=== PATIENT | male | born 1955 | race Caucasian/White ===

== ENCOUNTER → 2019-08-20 | Outpatient (CLI) | payer OTHER, MEDICARE ==
[~2019-08-20] MED LIST: ASPI-496 PO; HYDR-36 PO; MULT-658 PO; SIMV80TA18 PO; vitamin c
[2019-08-20 16:20] LABS: BASOPHILS # (AUTO) 0.02 x10^3/uL (0-0.1); BASOPHILS % (AUTO) 0 % (0-1); EOSINOPHILS # (AUTO) 0.24 x10^3/uL (0-0.4); EOSINOPHILS % (AUTO) 3 % (1-7); LYMPHOCYTES # (AUTO) 1.28 x10^3/uL (1-3.4); LYMPHOCYTES % (AUTO) 15 % (22-44); MD NO; MEAN CORPUSCULAR HEMOGLOBIN 31.3 pg (27.5-34.5); MEAN CORPUSCULAR HGB CONC 33.3 g/dL (33.2-36.2); MEAN CORPUSCULAR VOLUME 94.1 fL (81-97); MEAN PLATELET VOLUME 8.1 fL (7.4-10.4); MONOCYTES # (AUTO) 0.78 x10^3/uL (0.2-0.8); MONOCYTES % (AUTO) 9 % (2-9); NEUTROPHILS # (AUTO) 6.41 x10^3/uL (1.8-6.8); NEUTROPHILS % (AUTO) 73 % (42-75); PLATELET COUNT 210 x10^3/uL (130-400); RED BLOOD COUNT 4.75 x10^6/uL (4.38-5.82); RED CELL DISTRIBUTION WIDTH 12.9 % (9.4-14.8)
[2019-08-20 16:27] LABS: MICROSCOPIC NOT IND
[2019-08-20 16:30] LABS: CULTURE INDICATED? NO
[2019-08-20 16:31] LABS: ANION GAP 6 mmol/L (5-15); CALCIUM 8.7 mg/dL (8.5-10.1); CHLORIDE 104 mmol/L (98-107); CREATININE 1.07 mg/dL (0.7-1.3)
== END | disposition home or self-care (01) ==
LOC: STAR 15:07
PROVIDERS: ATTEND Orthopaedic Surgery
DX: Z01.818 Encounter for other preprocedural examination (principal); M16.12 Unilateral primary osteoarthritis, left hip; M51.36 Other intervertebral disc degeneration, lumbar region; M66.822 Spontaneous rupture of other tendons, left upper arm; M25.519 Pain in unspecified shoulder
CPT/HCPCS: 36415; 80048; 81003; 85025; 87081; 87806; 93005; G0475

== ENCOUNTER 2019-08-26 06:17 | Inpatient (IN) | payer OTHER, MEDICARE ==
[~2019-08-26] VITALS: Ht 180.3 cm; Wt 99.0 kg
[2019-08-26] MEDS ORDERED: TRANEXAMIC ACID 100 MG/ML, 10ML ONE (06:37)
[2019-08-26] MEDS ORDERED: KETOROLAC 60 MG/2 ML ONE (06:37)
[2019-08-26] MEDS ORDERED: EPINEPHRINE 1 MG/ML, 1ML ONE (06:38)
[2019-08-26] MEDS ORDERED: morphine SULFATE/PF 1 MG/ML, 10ML ONE (06:38)
[2019-08-26] MEDS ORDERED: ROPIvacaine/PF 0.2%, 20 ML ONE (06:38)
[2019-08-26] MEDS ORDERED: SODIUM CHLORIDE 0.9% 50 ML ONE (06:38)
[2019-08-26] MEDS ORDERED: BACITRACIN 50,000 UNIT ONE (06:39)
[2019-08-26] MEDS ORDERED: VANCOMYCIN PMX 1GM/200ML 200 ML IV STA (06:42)
[2019-08-26] MEDS ORDERED: LACTATED RINGERS 1,000 ML IV SCH (06:45)
[2019-08-26] MEDS ORDERED: FENTANYL PF 250 MCG/5ML ONE (07:17)
[2019-08-26] MEDS ORDERED: PROPOFOL 50 ML ONE (07:17)
[2019-08-26] MEDS ORDERED: MIDAZOLAM 1 MG/ML, 2ML ONE (07:17)
[2019-08-26] MEDS ORDERED: SUCCINYLCHOLINE 20 MG/ML, 10ML ONE (07:30)
[2019-08-26] MEDS ORDERED: METOPROLOL 1 MG/ML, 5ML IV PRN (08:00)
[2019-08-26] MEDS ORDERED: ONDANSETRON 2MG/ML, 2ML IV PRN (08:00)
[2019-08-26] MEDS ORDERED: hydrALAzine 20 MG/ML, 1ML IV PRN (08:00)
[2019-08-26] MEDS ORDERED: ACETAMINOPHEN 325 MG TABLET PO PRN ×2 (08:00→10:00)
[2019-08-26] MEDS ORDERED: PROMETHAZINE 25 MG/ML, 1ML IV PRN (08:00)
[2019-08-26] MEDS ORDERED: EPHEDRINE 50 MG/ML, 1ML IM PRN (08:00)
[2019-08-26] MEDS ORDERED: DIAZEPAM 5 MG/ML, 2ML IVPush PRN (08:00)
[2019-08-26] MEDS ORDERED: EPHEDRINE 50 MG/ML, 1ML IVPush PRN (08:00)
[2019-08-26] MEDS ORDERED: MEPERIDINE/PF 25MG/ML,1ML IVPush PRN (08:00)
[2019-08-26] MEDS ORDERED: DIPHENHYDRAMINE 50 MG/ML, 1ML IVPush PRN (08:00)
[2019-08-26] MEDS ORDERED: OXYcodone 5 MG/5 ML ORAL.SOL UDC PO PRN (08:00)
[2019-08-26] MEDS ORDERED: ONDANSETRON ODT 8 MG PO PRN (08:00)
[2019-08-26] MEDS ORDERED: MIDAZOLAM 1 MG/ML, 2ML IV PRN (08:00)
[2019-08-26] MEDS ORDERED: PROPOFOL 10 MG/ML, 20ML ONE (09:00)
[2019-08-26] MEDS ORDERED: DEXAMETHASONE 4 MG/ML, 1ML ONE (09:00)
[2019-08-26] MEDS ORDERED: ONDANSETRON 2MG/ML, 2ML ONE (09:00)
[2019-08-26] MEDS ORDERED: CEFAZOLIN 1,000 MG ONE ×2 (09:00)
[2019-08-26] MEDS ORDERED: ROCURONIUM 10MG/ML,5ML ONE (09:00)
[2019-08-26] MEDS ORDERED: FENTANYL PF 100 MCG/2ML ONE (09:49)
[2019-08-26] MEDS ORDERED: OXYcodone 5 MG/5 ML ORAL.SOL UDC ONE (09:49)
[2019-08-26] MEDS: FENTANYL PF 100 MCG/2ML IV PRN ×2 (09:53→09:59)
[2019-08-26] MEDS ORDERED: MORPHINE SULFATE 4 MG/ML, 1ML ONE (09:57)
[2019-08-26] MEDS ORDERED: DIPHENHYDRAMINE 25 MG CAPSULE PO PRN (10:00)
[2019-08-26] MEDS ORDERED: ONDANSETRON 2MG/ML, 2ML IVPush PRN (10:00)
[2019-08-26] MEDS ORDERED: MORPHINE SULFATE 4 MG/ML, 1ML IVPush PRN (10:00)
[2019-08-26] MEDS ORDERED: OXYcodone/APAP 7.5/325MG TABLET PO PRN (10:00)
[2019-08-26] MEDS: MORPHINE SULFATE 4 MG/ML, 1ML IVPush PRN (10:20)
[2019-08-26 10:45] VITALS: BP 132/80
[2019-08-26] MEDS ORDERED: D5%-0.45% NACL 1,000 ML IV SCH (11:03)
[2019-08-26] MEDS ORDERED: LORazepam 2 MG/ML, 1ML IVPush PRN (11:04)
[2019-08-26] MEDS ORDERED: TRANEXAMIC ACID 1,000 MG in SODIUM CHLORIDE 0.9% 100 ML IV ONE (13:00)
[2019-08-26] MEDS ORDERED: VIT C MC SCH (15:30)
[2019-08-26] MEDS ORDERED: CEFAZOLIN PMX 2GM/50ML 50 ML IVPB SCH (15:30)
[2019-08-26 15:57] VITALS: BP 130/81
[2019-08-26] MEDS ORDERED: SIMVASTATIN 40 MG TABLET PO SCH (21:00)
[2019-08-26] MEDS ORDERED: ZOLPIDEM 5MG TABLET PO PRN (21:00)
[2019-08-27] MEDS ORDERED: VANCOMYCIN PMX 1GM/200ML 200 ML IVPB ONE (07:30)
[2019-08-27] MEDS ORDERED: MULTIVITAMIN 1 TABLET PO SCH (09:00)
[2019-08-27] MEDS ORDERED: ASPIRIN 325 MG TABLET EC PO SCH (17:00)
[2019-08-27] MEDS ORDERED: DOCUSATE 100 MG CAPSULE PO SCH (21:00)
== END 2019-08-26 16:20 | disposition home or self-care (01) | DRG 470 ==
LOC: ORIP 06:17 → 4NE 10:38 → DCLOUNGE 16:10
PROVIDERS: ADMIT Orthopaedic Surgery; ATTEND Orthopaedic Surgery
PROC: 0SRB0JZ Replacement of Left Hip Joint with Synthetic Substitute, Open Approach (ICD-10-PCS; principal; 2019-08-26 07:30)
DX: M16.12 Unilateral primary osteoarthritis, left hip (principal); Z88.0 Allergy status to penicillin
CPT/HCPCS: 36415; 86850; 86900; J0171; J0690; J1100; J1885; J2250; J2274; J2405; J2704; J2795; J3010; J3370; J0330; J2270; J7120